=== PATIENT | female | born 1945 | race Caucasian/White ===

== ENCOUNTER → 2020-12-26 | Outpatient (CLI) | payer MEDICARE ==
[~2020-12-26] MED LIST: AMLO-170 PO; AMLO5TAB4 PO; APIX5TAB PO; ASPI-178 PO; CLON0.1T PO; CLOP75TA PO; COLC0.6T50 PO; DILT180C2 PO; DOXY100T PO; FAMO20TA5 PO; FURO-81 PO; IPRA4AER IH; METH4TAB2 PO; METO-237 PO; NYST1000 PO; POTA10TA6 PO; RIVA20TA PO; TRAM50TA PO; VALS320T2 PO
--- NOTE | 2020-12-26 21:38 | PRP ---
DATE OF PROCEDURE: 12/26/2020 VENOUS MAPPING ULTRASOUND INDICATION: Chronic venous insufficiency. RIGHT LOWER EXTREMITY: The right greater saphenous vein has a maximum diameter of 7 mm. Significant reflux is noted in the right GSV with maximum reflux of 2.5 seconds. The right small saphenous vein has a maximum diameter of 3 mm. Significant reflux is also noted in the right small saphenous vein with maximum reflux of 0.6 seconds. There is no evidence of deep venous thrombosis in the right lower extremity. LEFT LOWER EXTREMITY: The left greater saphenous vein has a maximum diameter of 8 mm. Significant reflux is noted in the left GSV with maximum reflux of 1.4 seconds. The left small saphenous vein has a maximum diameter of 3 mm. Significant reflux is also noted in the left SSV with maximum reflux of 1.5 seconds. There is no evidence of deep venous thrombosis in the left lower extremity. IMPRESSION: 1. The right greater saphenous vein is normal sized but displays pathological reflux. 2. The right small saphenous vein is normal sized but displays pathological reflux. 3. The left greater saphenous vein is normal sized but displays pathological reflux. 4. The left small saphenous vein is normal sized but displays pathological reflux. 5. There is no evidence of deep venous thrombosis in the bilateral lower extremities. RECOMMENDATION: Conservative measures including the use of compression stockings, leg elevation and exercise are recommended if clinically indicated. WILLIAM ROGERS D.O. DR: CONSUELO/yannick JOB# [id number]
== END | disposition home or self-care (01) ==
LOC: RAD 12:45
PROVIDERS: ATTEND Internal Medicine Interventional Cardiology
DX: I87.2 Venous insufficiency (chronic) (peripheral) (principal)
CPT/HCPCS: 93970